=== PATIENT | male | born 1975 | race Caucasian/White ===

== ENCOUNTER → 2018-07-09 18:15 | Outpatient (CLI) | payer BC, SELFPAY ==
--- NOTE | 2018-07-09 18:40 | XR_ITS ---
EXAM: XR lumbar spine min 4V HISTORY: ITS.REASON: lUMBAGO WITH SCIATICA, RIGHT SIDE. lUMBAR DISC DISEASE. ORDERING PHYSICIAN: Darryl Kevin MD PATIENT AGE: 43 years COMPARISON: 05/08/2012 FINDINGS: Normal alignment. No fracture or dislocation. No lytic or blastic change. There is decrease in the L5-S1 disc space consistent with degenerative disc disease. No fracture or dislocation. IMPRESSION: Degenerative disc disease L5-S1
== END ==
PROVIDERS: PCP Family Medicine; Visit Provider Family Medicine
DX: M54.41 Lumbago with sciatica, right side (principal); M51.9 Unspecified thoracic, thoracolumbar and lumbosacral intervertebral disc disorder; Z98.890 Other specified postprocedural states
CPT/HCPCS: 72110

== ENCOUNTER → 2018-07-20 09:18 | Outpatient (CLI) | payer BC, SELFPAY ==
--- NOTE | 2018-07-20 09:21 | MR_ITS ---
MR lumbar spine wo/w con, MR 3-d myelogram/MRCP HISTORY: LBP with pain in RT leg. When sitting for long periods tingling in RT leg. RT sided groin pain. ITS.REASON: LUMBAGO WITH SCIATICA ORDERING PHYSICIAN: Darryl Kevin MD PATIENT AGE: 43 years Comparison: X-RAY 07-09-18. MRI 05-08-2018. TECHNIQUE: Standard multiplanar multiecho sequences are performed without contrast. 3-D MIP and myelographic images are also rendered and reviewed FINDINGS: There is normal alignment. The spinal cord ends at the T12-L1 level. L1-L2: Unremarkable. L2-L3: Mild facet and ligamentum flavum hypertrophic change. L3-L4: Mild degenerative disc disease with minimal bulging disc and mild facet ligamentum flavum hypertrophy. L4-L5: Bulging disc with a right paracentral disc protrusion which abuts the anterior aspect of the right L5 nerve root.. There is moderate facet and ligamentum flavum hypertrophy with moderate bilateral foraminal narrowing and moderate to severe right lateral recess narrowing amplified by the protruding disc. L5-S1: There is an asymmetric bulging disc eccentric to the right with disc osteophyte complex. There is narrowing of the foramen on the right inferiorly. Previously there was a disc herniation at this area which is no longer apparent.. No evidence of epidural fibrosis.. No enhancing lesions are evident. IMPRESSION: 1. Bulging disc at L4-L5 with small broad-based right paracentral disc protrusion impinging upon the right L5 nerve root anteriorly along with facet and ligamentum hypertrophy at this level. 2. Asymmetric bulging discs eccentric to the right at L5-S1 with disc osteophyte complex causing foraminal narrowing. Previously noted herniated disc at this area no longer apparent 3. No evidence of epidural fibrosis
--- NOTE | 2018-07-20 10:21 | HMH.ITSHM ---
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 []ALEVE PREVACID CLARITIN
== END ==
PROVIDERS: PCP Family Medicine; Visit Provider Family Medicine
DX: M54.41 Lumbago with sciatica, right side (principal); M51.9 Unspecified thoracic, thoracolumbar and lumbosacral intervertebral disc disorder; Z98.890 Other specified postprocedural states
CPT/HCPCS: 72158; 76376; A9576

== ENCOUNTER → 2018-08-13 13:47 | Outpatient (POV) | payer BC, SELFPAY ==
[2018-08-13 13:54] VITALS: BP 126/80; PULSE 78; RESP 18; O2SAT 98; BMI 25.0
--- NOTE | 2018-08-13 15:04 | HMH.PMCON ---
Assessment and Plan (1) Sacroiliitis Current visit: Yes Status: Chronic Category: Medical Code(s): M46.1 - Sacroiliitis, not elsewhere classified (2) Postlaminectomy syndrome Current visit: Yes Status: Chronic Category: Medical Code(s): M96.1 - Postlaminectomy syndrome, not elsewhere classified - Assessment and plan all Dx Assessment and Plan for all problems:: Patient is not interested in any interventional means of treatment. Patient is in interested in needles . Patient and I discussed potential physical therapy. He is interested in pursuing that. We will send him for physical therapy reassess if symptoms after that. He has been instructed to call our office if there has been any changes in pain. Dr. Jorgensen has reviewed this note and agrees with this plan of care. This note was dictated using voice recognition software and may contain errors or omissions HPI - Data of Consult Consult date: 08/13/18 Requesting Physician: Татьяна Alvarado APRN Primary Care Provider: Darryl Kevin MD - Consult Narrative Reason for consult: Back pain History of present illness: Mr. Michelle is a 43 year old male who presents today for consultation in regards to his back pain. He rates his pain a 5 out of 10. Patient radiates into his right leg. Patient fell off a roof in 2018 since then he has had flareups in his pain. He had a laminectomy in 2005. He also had a discectomy in 2013. Patient has had diagnostic imaging. Patient also describing a lot of SI joint type pain. Patient states that since this most recent flare he is about 80% better. He has not done physical therapy recently. CC: Татьяна Alvarado APRN [facility] History I have reviewed the patient's past medical history: Yes Medical History: Denies:: Diabetes Mellitus Type 1, Internal Pacemaker *Have you ever received a pneumonia vaccine?: No *Have you received a flu vaccine this season?: No Other Surgeries: No: Pacemaker Amputation: No Fractures: No - *Social History Smoking Status: Never smoker Alcohol Intake: current Alcohol Intake Frequency:: a few times a week *Occupational Status:: other Housing: house *Travel in the last 8 weeks: None - Psychiatric History Expresses thoughts of harming self/others: None Suicide Plan Description: No Plan Family Hx:: Unable to obtain Review of Systems - Review of Systems ROS General: no recent weight change, no fever, no sleep disturbances Respiratory: no cough, no shortness of air, no recurring pulmonary infections Cardiovascular/Peripheral Vascular: No chest pain, No palpitations, no edema, no shortness of breath. Gastrointestinal: no incontinence, normal bowel movements reported Genitourinary: no incontinence Musculoskeletal: Back pain, leg pain Psychiatric: normal mood/ affect Neurological: [denies weakness in extremities], [denies balance issues] Objective Vital signs: Pulse Resp BP Pulse Ox 78 18 126/80 98 08/13/18 13:54 08/13/18 13:54 08/13/18 13:54 08/13/18 13:54 Narrative: Physical Exam General: Alert and oriented x3, no acute distress, pleasant and cooperative, [on room air] Lungs: Resps E/U, Symmetrical chest expansion, Eyes: PERRL Musculoskeletal: Flexion and extension of lumbar spine somewhat guarded secondary to pain, deep tendon reflexes normal, strength in upper and lower extremities [5/5], slightly antalgic gait noted. Tenderness over bilateral SI joints Neurological: speech clear, dispatcher service or work equal, no gross sensory deficits Opioid Risk Tool - Opioid Risk Tool-Male Family hx alcohol abuse: N Family hx illegal drugs: N Family hx rx drug abuse: N Personal hx alcohol abuse: N Personal hx illegal drugs: N Personal hx rx drug abuse: N Age: 16-45 Hx of sexual abuse: N Mental health issues-ADD,OCD,Bipolar, etc: N Hx of depression: N Male Risk Score: 1
--- NOTE | 2018-08-13 15:07 | P.CONS_ITS ---
Assessment and Plan (1) Sacroiliitis Current visit: Yes Status: Chronic Category: Medical Code(s): M46.1 - Sacroiliitis, not elsewhere classified (2) Postlaminectomy syndrome Current visit: Yes Status: Chronic Category: Medical Code(s): M96.1 - Postlaminectomy syndrome, not elsewhere classified - Assessment and plan all Dx Assessment and Plan for all problems:: Patient is not interested in any interventional means of treatment. Patient is in interested in needles . Patient and I discussed potential physical therapy. He is interested in pursuing that. We will send him for physical therapy reassess if symptoms after that. He has been instructed to call our office if there has been any changes in pain. Dr. Jorgensen has reviewed this note and agrees with this plan of care. This note was dictated using voice recognition software and may contain errors or omissions HPI - Data of Consult Consult date: 08/13/18 Requesting Physician: Татьяна Alvarado APRN Primary Care Provider: Darryl Kevin MD - Consult Narrative Reason for consult: Back pain History of present illness: Mr. Michelle is a 43 year old male who presents today for consultation in regards to his back pain. He rates his pain a 5 out of 10. Patient radiates into his right leg. Patient fell off a roof in 2018 since then he has had flareups in his pain. He had a laminectomy in 2005. He also had a discectomy in 2013. Patient has had diagnostic imaging. Patient also describing a lot of SI joint type pain. Patient states that since this most recent flare he is about 80% better. He has not done physical therapy recently. CC: Татьяна Alvarado APRN [facility] History I have reviewed the patient's past medical history: Yes Medical History: Denies:: Diabetes Mellitus Type 1, Internal Pacemaker *Have you ever received a pneumonia vaccine?: No *Have you received a flu vaccine this season?: No Other Surgeries: No: Pacemaker Amputation: No Fractures: No - *Social History Smoking Status: Never smoker Alcohol Intake: current Alcohol Intake Frequency:: a few times a week *Occupational Status:: other Housing: house *Travel in the last 8 weeks: None - Psychiatric History Expresses thoughts of harming self/others: None Suicide Plan Description: No Plan Family Hx:: Unable to obtain Review of Systems - Review of Systems ROS General: no recent weight change, no fever, no sleep disturbances Respiratory: no cough, no shortness of air, no recurring pulmonary infections Cardiovascular/Peripheral Vascular: No chest pain, No palpitations, no edema, no shortness of breath. Gastrointestinal: no incontinence, normal bowel movements reported Genitourinary: no incontinence Musculoskeletal: Back pain, leg pain Psychiatric: normal mood/ affect Neurological: [denies weakness in extremities], [denies balance issues] Objective Vital signs: Pulse Resp BP Pulse Ox 78 18 126/80 98 08/13/18 13:54 08/13/18 13:54 08/13/18 13:54 08/13/18 13:54 Narrative: Physical Exam General: Alert and oriented x3, no acute distress, pleasant and cooperative, [on room air] Lungs: Resps E/U, Symmetrical chest expansion, Eyes: PERRL Musculoskeletal: Flexion and extension of lumbar spine somewhat guarded secondary to pain, deep tendon reflexes normal, strength in upper and lower extremities [5/5], slightly antalgic gait noted. Ten
== END ==
PROVIDERS: PCP Family Medicine; Visit Provider Clinical Nurse Specialist Family Health
DX: M46.1 Sacroiliitis, not elsewhere classified (principal); M96.1 Postlaminectomy syndrome, not elsewhere classified
CPT/HCPCS: 99202

== ENCOUNTER 2021-06-23 14:09 | Emergency (ER) | payer BC, SELFPAY ==
[2021-06-23 14:15] VITALS: BP 139/83; PULSE 90; RESP 22; TEMP 37.4; O2SAT 98; BMI 24.4
[2021-06-23 14:32] LABS: UTC Influenza A Antigen Negative (Negative); UTC Influenza B Antigen Negative (Negative)
--- NOTE | 2021-06-23 14:32 | HMH.EDUTC ---
[facility] Disposition Clinical Impression: Sinusitis Qualifiers: Sinusitis location: unspecified location Chronicity: unspecified Qualified Code(s): J32.9 - Chronic sinusitis, unspecified Disposition: Home, Self-Care Condition on Discharge: Good Instructions: Sinusitis, DI for Sinusitis, DI for COVID-19 (Suspected or Confirmed ) Additional Instructions: *Monitor Temp, Over the counter Motrin or Tylenol as directed/as needed Tylenol every 4 hours and Motrin every 6 hours (as long as your family doctor has told you that you can take it) for fever or pain. and straight to ER if unable to lower temp less than 101.0 after medication given *Warm salt water gargles may help to soothe the throat *Throat Lozenges *Warm fluids like tea with honey may help to soothe the throat *Sleep elevated *Humidifier/Vaporizer Your throat swab was sent for culture. Those results are typically sent to your primary care. Be sure to follow up in 2-3 days with your family doctor/primary care physician if no improvement so they can review those result and treat if necessary. If you don?t have a primary care doctor, I recommend you get one but in the mean time, you will have to return to a walk in clinic Follow up IMMEDIATELY for new or worsening symptoms or no Noticeable improvement over the next 48-72 hours. 911 for difficulty breathing or swallowing You can check your results on the [facility] Portal in the next 24 hours, further quarantine per CDC guidelines and make sure to wear a well fitted mask Prescriptions: methylPREDNISolone [Medrol 4mg tab] 4 mg PO DIRECTED #21 tab Transmission Status: Pending to [facility] Azithromycin [Z-Louis 250mg Tab] 250 mg PO DIRECTED #6 tab Transmission Status: Pending to [facility] Referrals: Darryl Kevin MD [Primary Care Provider] - As needed Forms: Work/School Release Time of Disposition: 14:52 Medical Decision Making - Monty Inquiry Pt receiving controlled substance: No Monty was queried for this patient: No Vital Signs: 06/23/21 14:15 Temperature 99.4 F Temperature Source Oral Pulse Rate [Left Brachial] 90 Respiratory Rate 22 Blood Pressure [Left Arm] 139/83 Blood Pressure Mean [Left Arm] 101 Blood Pressure Source [Left Arm] Automatic Cuff Blood Pressure Position [Left Arm] Sitting 02 Sat by Pulse Oximetry 98 Oxygen Delivery Method Room Air - Lab Data Lab results reviewed: Yes: I reviewed the patient's lab results. [facility] HPI - General Stated complaint: feverish, bodyaches, runny nose, sore throat Time Seen by Provider: 06/23/21 14:32 Mode of Arrival: Ambulatory Source of Information: Patient Limitations: No Limitations Description of Symptoms (Recalled from Triage Doc. by RN): PATIENT C/O SORE THROAT, SINUS DRAINAGE, BODY ACHES, AND CHILLS X 2 DAYS HEENT Symptoms (Recalled from RN notes): Yes Resp Symptoms (Recalled from RN notes): No Skin Symptoms (Recalled from RN notes): No MS Symptoms (Recalled from RN notes): No Functional Status (Recalled from RN notes): WNL - History of Present Illness Provider Complaint: Patient states that he has been having sinus congestion and pressure along with scratchy throat on and off for about a week thought it was allergies and has been taking OTC allergy medications State that for the last couple of days he has been having body aches, chills, feeling feverish and headache States that today he went to work and continued to feel worse so he came in to get checked out - Related Data Previous Rx's Medication Instructions Recorded Azithromycin [Z-Louis 250mg Tab] 250 mg PO DIRECTED #6 tab 06/23/21 methylPREDNISolone [Medrol 4mg 4 mg PO DIRECTED #21 tab 06/23/21 tab] Allergies Allergy/AdvReac Type Severity Reaction Status Date / Time No Known Allergies Allergy Verified 06/23/21 14:27 - Worker's Comp Is this a Worker's Comp case?: No [facility] History - Hepatitis A Screen Attestation statem
[2021-06-23 14:45] VITALS: BP 139/83; PULSE 90; RESP 22; TEMP 37.4; O2SAT 98
== END 2021-06-23 15:00 | disposition home or self-care (01) ==
PROVIDERS: Emergency Provider Nurse Practitioner; PCP Family Medicine
DX: J32.9 Chronic sinusitis, unspecified (principal)
CPT/HCPCS: 87804; 99212; C9803; G0463; U0003; U0005

== ENCOUNTER 2024-03-28 10:35 | Outpatient (CLI) | payer BC, SELFPAY ==
[2024-03-28 11:17] LABS: Basophils % 0.2 % (0.1-2.0); Eosinophils # 0.3 K/mm3 (0.0-0.4); Eosinophils % 6.9 % (0.1-12.0); Hematocrit 46.3 % (42.0-52.0); Lymphocytes # 1.3 K/mm3 (0.7-4.5); Lymphocytes % 29.2 % (10-50); Mean Corpuscular HGB Conc 34.6 g/dL (31.8-35.4); Mean Corpuscular Volume 89.7 fl (80-94); Mean Platelet Volume 9.6 fl (7.4-10.4); Monocytes # 0.4 K/mm3 (0.1-1.0); Monocytes % 8.6 % (1.7-9.3); Neutrophils # 2.4 K/mm3 (1.8-7.8); Neutrophils % 54.9 % (37.0-80.0); Platelet Count 229 K/mm3 (142-424); Red Blood Count 5.16 M/mm3 (4.60-6.20); Red Cell Distribution Width 11.6 % (11.5-17.5); White Blood Count 4.3 K/mm3 (4.8-10.8)
[2024-03-28 11:46] LABS: Albumin Level 4.2 g/dl (3.5-5.0); Chloride 105 mmol/L (98-107); Potassium 4.9 mmoL/L (3.5-5.1); Sodium 139 mmol/L (136-145)
[2024-03-28 11:48] LABS: Alanine Aminotransferase 24 U/L (12-78); Anion Gap 9.9 mEq/L (5-15); Aspartate Amino Transferase 33 U/L (17-59); Blood Urea Nitrogen 21 mg/dl (9-20); Carbon Dioxide 29 mmol/L (22.0-30.0); Estimated Glomerular Filt Rate 90 ml/min (>60); GFR (African American) 109 ML/MIN (>60)
[2024-03-28 11:49] LABS: Albumin/Globulin Ratio 2.1 (1.1-1.8); Alkaline Phosphatase 61 U/L (38-126); Bilirubin,Total 1.1 mg/dl (0.2-1.3); Calcium 9.1 mg/dl (8.4-10.2); Chol/HDL Ratio 4.8 (1-3.5); Cholesterol 163 mg/dl (140-200); Glucose 100 mg/dl (74-100); HDL Cholesterol 34 mg/dl (40-60); Total Protein,Serum 6.2 g/dl (6.3-8.2); Triglycerides 66 mg/dl (30-150); VLDL Cholesterol 13 mg/dL (0-40)
[2024-03-28 12:00] LABS: Direct LDL Cholesterol 92.88 mg/dL (100-129)
[2024-03-29 15:21] LABS: H. pylori Breath Test Negative (Negative); RA Latex Turbid. 11.5 IU/mL (<14.0)
== END 2024-03-28 23:59 | disposition home or self-care (01) ==
LOC: LAB 10:38
PROVIDERS: PCP Nurse Practitioner Family; Visit Provider Nurse Practitioner Family
DX: M19.90 Unspecified osteoarthritis, unspecified site (principal); K21.9 Gastro-esophageal reflux disease without esophagitis; Z13.220 Encounter for screening for lipoid disorders
CPT/HCPCS: 36415; 80053; 80061; 83013; 85025; 86431